=== PATIENT | female | born 1950 | race Caucasian/White ===

== ENCOUNTER 2019-02-23 06:48 | Inpatient (IN) | payer MEDICARE, OTHER ==
[2019-02-12 09:12] LABS: ABSOLUTE EOSINOPHILS 0.1 thou/uL (0.0-0.7); ABSOLUTE LYMPHOCYTES 2.6 thou/uL (0.8-5.3); ABSOLUTE MONOCYTES 0.3 thou/uL (0.0-1.2); ABSOLUTE NEUTROPHILS 4.1 thou/uL (1.6-8.1); BASOPHILS 0.7 %; EOSINOPHILS 1.5 %; HEMATOCRIT 37.4 % (37.0-47.0); HEMOGLOBIN 12.8 gm/dL (12.0-15.0); LYMPHOCYTES 36.4 %; MCH 32.3 pg (26.0-34.0); MCHC 34.4 g/dL (28.0-37.0); MCV 94.1 fL (80.0-100.0); MONOCYTES 4.5 %; MPV 7.2 fl. (7.2-11.1); NUCLEATED RBCS 0 /100WBC; PLATELET COUNT* 278 thou/uL (150-400); POLYS 56.9 %; RBC 3.97 mil/uL (4.20-5.00); RDW-CV 14.5 % (10.5-14.5); WBC 7.2 thou/uL (4.0-11.0)
[2019-02-12 09:35] LABS: APTT 27.4 Seconds (25.0-31.3); PROTIME 10.3 Seconds (9.20-11.50)
[2019-02-12 09:38] LABS: ALBUMIN 3.8 g/dL (3.4-5.0); CREATININE 0.9 mg/dL (0.6-1.3); POTASSIUM 3.2 mmol/L (3.5-5.1); TOTAL BILIRUBIN 0.3 mg/dL (<0.1-1.0); TOTAL PROTEIN 6.8 g/dL (6.4-8.2)
[2019-02-12 10:35] LABS: ESR (SEDRATE) 10 mm/hr (0-30)
--- NOTE | 2019-02-12 11:56 | EKG ---
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: : 1950 Requested By: Laron Queen Order Number: [id number] Reading MD: Ace Sharpe Measurements Intervals [place] Rate: 43 P: 32 KS: 225 QRS: -49 QRSD: 116 T: 23 QT: 515 QTc: 436 Interpretive Statements Sinus bradycardia Borderline prolonged KS interval Left anterior fascicular block Probable left ventricular hypertrophy Anterior Q waves, possibly due to LVH Compared to ECG 07/25/2016 10:46:45 Left ventricular hypertrophy now present Q waves now present Electronically Signed On 02-12-2019 11:56:00 CDT by Ace Sharpe [email or web address] <ELECTRONICALLY SIGNED> By: Vanessa Sharpe MD, [facility] 02/12/19 1156 9 9 Vanessa Sharpe MD, [facility] /EPI
[2019-02-13 02:07] LABS: GLYCOHEMOGLOBIN (HGB A1C) 6.3 % (4.8-5.6)
[~2019-02-23] VITALS: Ht 165.1 cm; Wt 119.7 kg
--- NOTE | ~2019-02-23 | OP ---
[address] [address] OPERATIVE REPORT Name: YUDI MCMANUS Reg Room: [address] IN ..#: [id number] Admission: 02/23/19 Attend Phys: Jo Ann Lu Discharge: Date of : 50 Report #: [id number] THIS REPORT FOR: //name// CC: Laron Alvarado DICTATED BY: Murphy Wylie DO DATE OF SERVICE: 02/23/2019 PREOPERATIVE DIAGNOSIS: Left hip advanced degenerative joint disease. POSTOPERATIVE DIAGNOSIS: Left hip advanced degenerative joint disease. PROCEDURE PERFORMED: Left total hip arthroplasty. SURGEON: Laron Queen DO GOVERNMENT OPERATIONS CONSULTANT: Murphy Wylie DO ANESTHESIA: General and local. ESTIMATED BLOOD LOSS: 325 mL. SPECIMENS: None. COMPLICATIONS: None. DISPOSITION: Stable to PACU. IMPLANTS: 1. Biomet total hip system with a 52-mm G7 cup. 2. A size 8 high-offset stem. 3. A -3 mm neck, 36-mm head. INDICATIONS: The patient is a pleasant 68-year-old female who has known DJD of the left hip, verified the exam and preoperative x-rays. She did have conservative measures and these were not beneficial for her. Please see our clinic notes. Her DJD was becoming more advanced. She was becoming more sedentary and her symptoms were affecting her ADLs. We discussed risks, benefits, complications, terms and indications with her preoperatively as well as in the clinic, and she voiced understanding and wished to proceed with surgery. DESCRIPTION OF PROCEDURE: The patient was seen in the preoperative holding [facility] [address] [place] [address] OPERATIVE REPORT Name: YUDI MCMANUS Room: [address] IN [facility]#: [id number] Admission: 02/23/19 Attend Phys: Jo Ann Lu Discharge: Date of : 50 Report #: [id number]. Correct operative site was marked. Verbal consent was obtained. She was transferred to the operative suite and placed supine on the table, given benefit of general anesthesia by the Anesthesia Team. The left lower extremity was then prepped and draped in normal sterile fashion. Timeout was performed, all in attendance in agreement, correct operative site and procedure to be performed. Our local anesthetic was then injected in the area of our incision. A 20-blade scalpel was used to incise the skin and then electrocautery was used to take this down to the level of tensor fascia abena. A new 10-blade scalpel was used to incise the fascia and then Metzenbaum scissors were used to release the fascia, both proximal and distal. Blunt dissection was then carried down until we could palpate the femoral neck. The 7 retractor was placed in superior neck. A #3 retractor placed in the inferior neck and then Meyerding was used to retract the medial musculature. We then bluntly dissected around our circumflex vessels and then the Aquamantys was used to cauterize these appropriately. Once this was performed, the electrocautery was then used to cut through the circumflex vessels and go down to the capsule. We then reflected the indirect head of the rectus femoris with the Garcia elevator. A #9 retractor was placed on the acetabulum anteriorly. We then fully cauterized the anterior capsule and this was excised using electrocautery. We then replaced our #7 and #6 retractors on the superior and inferior neck appropriately and marked area for our femoral neck cut. The oscillating saw was then used to perform our femoral neck cut in ____ fashion and then the excess bone and the femoral head was removed. We then used the Aquamantys once again to cauterize the fovea and labrum was excised using electrocautery. Once we had good visualization, our appropriate-size reamer was placed and reaming was performed to the proper depth and position. X-ray was used to verify this placement with fluoroscopy. Reamings were removed and the acetabulum was thoroughly irrigated with sterile saline. The final 52-mm G7 cup was then malleted into place, verified to be clearly down with fluoroscopy. We then placed 2 screws through the ilium, a 30 mm and a 25 mm appropriate length. The high wall polyethylene liner was then malleted into place and found to be stable. We then turned our attention to the proximal femur for preparation of our stem. The hip was externally rotated approximately 125 degrees and then placed in extension and adduction. Using box osteotome to gain access followed by rattail rasp, we then broached up to the appropriate size, 8 femoral stem. We then trialed this with a high-offset -3 mm neck and the hip was reduced and found to have good range of motion and stability in all testable planes. Fluoroscopy was once again used to verify our length compared to the contralateral hip. The trial implants were then removed. The hip was locked in place in extension, adduction and external rotation and our trial broach was removed. Sterile saline was used to thoroughly irrigate the canal. Vancomycin powder was placed and then the final size 8 high-offset stem was [place] [id number] OPERATIVE REPORT Name: YUDI MCMANUS Room: [facility] IN [facility]#: [id number] Admission: 02/23/19 Attend Phys: Jo Ann Lu Discharge: Date of : 50 Report #: [id number] appropriate depth. A -3 mm, 36-mm head was then malleted into place, found to be stable and final reduction was performed. Final fluoroscopic images were taken and saved to the chart and the hip was thoroughly irrigated with sterile saline. The fascia was reapproximated using a running #1 Stratafix and soft tissues were closed using 2-0 Monocryl followed by running subcuticular 3-0 Stratafix followed by Dermabond skin glue. This was allowed to dry and then, a sterile Mepilex dressing was placed. The patient was awoken from anesthesia and transferred to PACU in stable condition. All needle and scrub counts were correct at the end of the case x 2. I attest Dr. Queen was present for critical decision making aspects of the case. By: [id number] Vanessa Queen DO /nt
[~2019-02-23 06:48] MED LIST: AMBIEN 5 MG TABL5 M1 PO; ASPIRIN325 PO; ATIVAN0.5 MG PO; ATORVASTATIN CA40 MG PO; CELEXA20 MG PO; COLACE100 MG PO; GABAPENTIN 100100 MG PO; IBUPROFEN 800800 M1 PO; LISINOPRIL-HCT1 EAC2 PO; METFORMIN HCL500 M2 PO; METFORMIN HCL500 MG PO; MYSOLINE50 MG PO; OXYBUTYNIN 5 MG5 M2 PO; OXYCODONE HCL 55 MG PO; XANAX 0.25 MG0.25 MG PO; XARELTO10 MG PO
[2019-02-23 07:15] VITALS: BP 146/78
[2019-02-23 14:00] VITALS: BP 122/51
[2019-02-23 16:30] VITALS: BP 141/64
--- NOTE | 2019-02-23 17:00 | NUR ---
PT ARRIVED FROM PACU AT 1355. PT A&Ox4. VITALS STABLE. IV PATENT. ON 3LO2 AND CAPNO. DRESSING C/D/I. ICE AND SCDs IN PLACE. AMMON PATENT, DC TOMORROW MORNING. PAIN CONTROLLED WITH OXY IR AND TYLENOL. DENIED NAUSEA. TOLERATING FOOD AND DRINK. HAS NOT AMBULATED ON SHIFT. FALL PRECAUTIONS IN PLACE. CALL LIGHT WITHIN REACH. WILL CONTINUE TO MONITOR.
[2019-02-24] VITALS: BP 96/44
[2019-02-24 04:00] VITALS: BP 120/41
--- NOTE | 2019-02-24 05:31 | NUR ---
PT SLEPT ON AND OFF THIS SHIFT, REQUIRING IV AND PO PAIN MED FOR ADEQUATE PAIN CONTROL. LORAZEPAM AND AMBIEN GIVEN PER PT REQUEST WITH FAIR RESULT. CAPNO ON AND OPERATING WITHOUT ALARMING OVERNIGH. O2 2L NC. MEPILEX CDI TO L HIP, ICE PACK ON PT ALLOWED. SCDS ON AND OPERAATING. VERDE DRAINING YELLOW URINE. AM LABS DRAWN. NOT OOB THIS SHIFT, PT/OT TO WORK WITH CLIENT TODAY. LAC IVF INFUSING PER PUMP. PT TOLERATING FOOD AND FLUID WITHOUT DIFFICULTY. ABLE TO USE CALL LITE AND MAKE NEEDS KNOWN. CALL LITE IN EASY REACH.
[2019-02-24 05:52] LABS: ABSOLUTE EOSINOPHILS 0.1 thou/uL (0.0-0.7); ABSOLUTE LYMPHOCYTES 1.9 thou/uL (0.8-5.3); ABSOLUTE MONOCYTES 0.4 thou/uL (0.0-1.2); ABSOLUTE NEUTROPHILS 5.2 thou/uL (1.6-8.1); BASOPHILS 0.3 %; EOSINOPHILS 1.2 %; HEMOGLOBIN 9.3 gm/dL (12.0-15.0); MCH 32.3 pg (26.0-34.0); MCHC 34.3 g/dL (28.0-37.0); MCV 94.3 fL (80.0-100.0); MONOCYTES 5.7 %; MPV 7.4 fl. (7.2-11.1); NUCLEATED RBCS 0 /100WBC; PLATELET COUNT* 189 thou/uL (150-400); POLYS 67.8 %; RBC 2.86 mil/uL (4.20-5.00); RDW-CV 14.6 % (10.5-14.5); WBC 7.6 thou/uL (4.0-11.0)
[2019-02-24 06:31] LABS: CALCIUM 7.9 mg/dL (8.5-10.1); CREATININE 1.1 mg/dL (0.6-1.3); MAGNESIUM 1.5 mg/dL (1.8-2.4); POTASSIUM 3.2 mmol/L (3.5-5.1)
[2019-02-24 07:30] VITALS: BP 105/38
[2019-02-24 07:54] VITALS: BP 105/38
--- NOTE | 2019-02-24 12:11 | NUR ---
This RN instructor agrees with the assessment of SN Kunal for 02/24/2019 at 1007.
[2019-02-24 15:53] VITALS: BP 110/43
--- NOTE | 2019-02-24 17:07 | NUR ---
PT.IN BED. ALERT AND ORIENTED. PLEASANT. SHE SAID SHE PLANS ON GOING HOME TOMORORW. HER WILL BE WITH HER AND CAN HELP NEEDED. SHE HAS HAD HER OTHER HIM,BOTH KNEES AND R SHOULDER REPLACED IN THE PAST, 'SO HE KNOWS HOW TO TAKE GREAT CARE OF ME.' SHE HAS ALL THE DME SHE NEEDS. PLANS ON DOING OUTPT.THERAPY WHEN THE OKAYS HER TO START. HER PHARMACY IS [facility] IN [place]. SHE SAID SHE SHOULD HAVE NO COPAY FOR HER ELIQUIS. CM WILL CALL IN TO CONFIRM.
[2019-02-24 17:10] VITALS: BP 110/43
--- NOTE | 2019-02-24 17:19 | NUR ---
PT A&Ox4. VITALS STABLE. IV PATENT. PAIN PARTIALLY CONTROLLED WITH OXY IR, TYLENOL AND NAPROXEN. DENIED N/V. VERDE REMOVED BY RESIDENT THIS MORNING. HAS NOT VOIDED, BLADDER SCAN SHOWED 110 ML. ON RA. DRESSING C/D/I. SCDs AND ICE PACK IN PLACE. UP WITH THERAPY TO CHAIR. UP WITH 1 USING GAITBELT AND WALKER. FALL PRECAUTIONS IN PLACE. CALL LIGHT WITHIN REACH. WILL CONTINUE TO MONITOR.
[2019-02-25 00:15] VITALS: BP 107/43
[2019-02-25 04:21] LABS: HEMATOCRIT 27.4 % (37.0-47.0); HEMOGLOBIN 9.5 gm/dL (12.0-15.0)
[2019-02-25 04:28] VITALS: BP 103/46
--- NOTE | 2019-02-25 06:31 | NUR ---
PT ALERT AND ORIENTED. VSS ON RA. BP WAS 95/53 DURING ASSESSMENT. BP MED AND DIURETIC HELD THIS SHIFT. PT SLEPT OFF AND ON THIS SHIFT. PT GIVEN PAIN MEDS MULTIPLE TIMES THIS SHIFT. PT TO BSC WITH WALKER AND GAIT BELT. CALL LIGHT WITHIN REACH. HOURLY ROUNDINGS MADE. ANTICIPATED DC TODAY. DR DAVIS EMPASIZED THAT PT HAVE ANTONIO HOSE ON BEFORE DC. WILL PASS ON TO DAYSHIFT. WILL CONTINUE TO MONITOR.
[2019-02-25] MEDS ORDERED: OXYCODONE HCL 55 MG PO (07:27)
[2019-02-25] MEDS ORDERED: ELIQUIS5 MG PO (07:27)
[2019-02-25 07:52] VITALS: BP 93/44
[2019-02-25 10:29] VITALS: BP 106/56
--- NOTE | 2019-02-25 12:05 | NUR ---
PT.TO DISCHARGE TODAY WITH OUTPT.THERAPY AFTER FOLLOW UP WITH . CALLED IN PRESCRIPTION FOR ELIQUIS WRITTEN TO PT.'S PHARMACY. COPAY WAS GOING TO BE $221. GAVE PT.A COUPON FOR FREE TRIAL OF ELIQUIS. CM CALLED IN COUPON TO HER PHARMACY AND IT WENT THROUGH SO PT.MAY USE. NO OTHER DISCHARG NEEDS.
--- NOTE | 2019-02-25 12:24 | NUR ---
This RN instructor agrees with the assessment of SN Fermín for 02/25/19 at 1101.
--- NOTE | 2019-02-25 14:49 | NUR ---
ASSUMED CARE OF PATIENT AT APPROX 0730. ALERT AND ORIENTED X4. VSS ON ROOM AIR. PAIN MANAGED WITH ORAL MEDICATION. UP WITH GAIT BELT AND WALKER TO BEDSIDE COMMODE. PATIENT WORKED WELL WITH THERAPIES AND PROGRESSED TOWARD GOALS. PATIENT DISCHARGED AT 1230 WITH ALL PERSONAL BELONGINGS, PRESCRIPTIONS AND DISCHARGE INFORMATION.
== END 2019-02-25 12:30 | disposition home or self-care (01) | DRG 470 ==
LOC: M.PRE 06:48 → M.TBA 07:00 → M.ORTHSURG 07:00 → M.PRE 09:32 → M.ORTHSURG 13:47
PROVIDERS: Family Medicine; Orthopaedic Surgery; ADMIT Internal Medicine
PROC: 0SRB0JA Replacement of Left Hip Joint with Synthetic Substitute, Uncemented, Open Approach (ICD-10-PCS; principal; 2019-02-23)
DX: M16.12 Unilateral primary osteoarthritis, left hip (principal); Z68.41 Body mass index [BMI] 40.0-44.9, adult; I10 Essential (primary) hypertension; Z96.641 Presence of right artificial hip joint; Z96.653 Presence of artificial knee joint, bilateral; Z90.49 Acquired absence of other specified parts of digestive tract; E78.5 Hyperlipidemia, unspecified; G25.0 Essential tremor; E66.01 Morbid (severe) obesity due to excess calories; E11.9 Type 2 diabetes mellitus without complications